=== PATIENT | male | born 1980 | race Caucasian/White ===

== ENCOUNTER 2020-01-29 13:42 | Outpatient (REF) | payer MEDICAID, SELFPAY | END 2020-01-29 13:43 | disposition home or self-care (01) | LOC: HO.LAB 13:42 | PROVIDERS: Visit Provider Internal Medicine | DX: Z20.828 Contact with and (suspected) exposure to other viral communicable diseases (principal) | CPT/HCPCS: C9803; U0003 ==

== ENCOUNTER → 2020-10-19 08:46 | Outpatient (BNVA) | payer OTHER, SELFPAY | PROVIDERS: PCP Internal Medicine; Visit Provider Physician Assistant | DX: S05.92XA Unspecified injury of left eye and orbit, initial encounter (principal); W22.8XXA Striking against or struck by other objects, initial encounter; H57.12 Ocular pain, left eye ==

== ENCOUNTER 2020-10-19 09:46 | Emergency (ER) | payer OTHER, SELFPAY ==
--- NOTE | ~2020-10-19 | CT_ITS ---
EXAMINATION: CT ORBIT WITHOUT CONTRAST CLINICAL INFORMATION: Left thigh pain after trauma. Rule out lobe rupture. COMPARISON: None TECHNIQUE: Axial images through the orbits without contrast. Sagittal and coronal reconstructions on the technologist workstation were performed. This CT examination was performed using dose optimization techniques as appropriate, variously including the following: *Automated exposure control *Adjustment of mA and/or kV according to patient size (this includes techniques or standardized protocols for targeted exams where dose is matched to indication/reason for exam; i.e. extremities or head) *Use of iterative reconstruction technique DLP: 238 mGy-cm FINDINGS: The left eyeball is normal-appearing. Pre- and postseptal soft tissues are normal. No fracture or dislocation is seen. Visualized paranasal sinuses, mastoid air cells and middle ears are clear. The temporomandibular joints are normal. Visualized intracranial structures are normal. CT/CT orbit BI wo con IMPRESSION: Unremarkable examination.
[2020-10-19 10:25] VITALS: BP 111/79; PULSE 58; RESP 16; TEMP 36.1; O2SAT 98; BMI 27.0
[2020-10-19] MEDS: Fluorescein Sodium STRIP 1 STRIP EYE-LEFT (10:49)
[2020-10-19] MEDS: Tetracaine HCl/PF 0.5% Oph Sol 4 ML DROPS 1 DROP EYE-LEFT (10:49)
--- NOTE | 2020-10-19 12:40 | ED.EYEPROB ---
HPI - Eye Problem General Chief complaint: Eye Problems Stated complaint: FB in eye Time Seen by Provider: 10/19/20 10:41 Source: patient Mode of arrival: ambulatory Limitations: no limitations History of Present Illness HPI Narrative: On Monday the patient was working and he was struck in the left eye with a piece of wood. Since then he has had eye pain, photophobia and blurry vision. He does not use any contacts or glasses. He denies any head injury loss of consciousness. Related Data Previous Rx's Medication Instructions Recorded prednisolone acetate (PF) 1 drp OPHTHALMIC (EYE) QID 5 Days 10/19/20 #50 ml Allergies Allergy/AdvReac Type Severity Reaction Status Date / Time No Known Allergies Allergy Verified 10/19/20 10:25 Review of Systems Review of Systems: Yes all other systems are reviewed and are negative Constitutional: Constitutional: Reports no additional constitutional complaints, Denies body ache(s), Denies chills, Denies fever(s), Denies headache(s) and Denies weakness Eyes: Eyes: Reports no additional eye complaints, Reports blurry vision, Reports change in vision, Reports eye pain and Reports photophobia ENT: Reports system reviewed and no additional complaints, except as documented, Denies dizziness, Denies headache(s), Denies nasal congestion, Denies nasal discharge and Denies neck pain Cardiovascular: Cardiovascular: Reports no additional cardiovascular complaints, Denies chest pain, Denies leg edema and Denies dyspnea Respiratory: Respiratory: Reports no additional respiratory complaints, Denies cough and Denies dyspnea Gastrointestinal: Gastrointestinal: Reports no additional gastrointestinal complaints, Denies abdominal pain, Denies diarrhea, Denies nausea and Denies vomiting Genitourinary: Genitourinary: Denies urinary incontinence Musculoskeletal: Musculoskeletal: Reports no additional musculoskeletal complaints, Denies back pain, Denies arthralgias, Denies joint swelling, Denies neck pain, Denies numbness and Denies tingling Integumentary/Breasts: Skin/Breast: Reports system reviewed and no additional complaints, except as docu and Denies rash Neurologic: Reports system reviewed and no additional complaints, except as documented, Denies Abnormal speech present, Denies dizziness, Denies headache(s), Denies numbness, Denies tingling and Denies weakness PMF Past Medical History Attestation statement: The following information was validated with the patient. Source: old records reviewed and nursing notes reviewed Medical History No known health problems Social History Social History Advance Directives: Yes Advance Directives Information Provided: Yes Advance Directives on File: No Physical Exam Vital Signs: Vital Signs: Last Vital Signs Temp 97 F 10/19/20 10:25 Pulse 58 10/19/20 10:25 Resp 16 10/19/20 10:25 BP 111/79 10/19/20 10:25 Pulse Ox 98 10/19/20 10:25 Body Mass Index 27.0 Const: General: cooperative, healthy appearing, comfortable and no acute distress Orientation/consciousness: patient oriented x3 Limitations: no limitations HENMT: Head: Yes normal to inspection Ears: hearing grossly normal bilaterally General nose exam: Normal external nose present Face and sinus: Yes normal facial exam Mouth: Normal oral and palatal mucosa present Throat: Yes posterior oropharynx normal Eyes: Other: IOP right eye 10, left eye 8 Visual acuity right eye 20/15, left eye 20/70-after tetracaine repeat visual acuity left eye 20/15 General: appearance normal, both eyes and all related structures Alignment and Position: alignment normal Periorbital: periorbital findings normal Eyelids: Yes eyelids normal Conjunctivae: conjunctival abnormal (Mild injection to the left eye) Sclerae: sclerae normal Corneas: corneas abnormal and fluorescein used (No foreign body or abrasion noted) Pupils: Equal, round and reactive pupils present EOM: EOMs intact bilaterally (Pain with EOM movement) Direct Ophthalmoscopy: no papilledema, fundi normal bilaterally, anterior chamber normal and photophobia Neck: Neck: Yes normal visual inspection Chest: Chest palpation & inspection: normal inspection of the chest Resp: Effort & Inspection: normal respiratory effort Auscultation: clear to auscultation bilaterally Cardio: Rate: regular rate Rhythm: regular rhythm Peripheral pulses: Peripheral pulses 2+ throughout GI: Inspection: Yes normal to inspection Palpation (GI): Soft to palpation and nontender Auscultation: normal bowel sounds Back/Spine/Pelvis: Thoracic/Lumbar Spine: thoracic and lumbar spine normal to inspection Skin: General skin exam: no rashes or lesions noted Neuro: General: patient oriented x3, no focal motor deficits and normal sensation to monofilament Cranial nerves: Yes Equal, round and reactive pupils present Cognition (Neuro): normal cognition Speech: No Abnormal speech present Gait exam (Neuro): Normal gait present Motor exam (neuro): 5/5 motor strength present throughout Extrem: General: Yes normal to inspection Course Course Course Narrative: 40-year-old male here with complaints of left eye pain, photophobia, blurry vision after a blunt injury 2 days ago at work. Decreased visual acuity initially however after tetracaine equal bilaterally. Fluorescein stain shows no foreign body or abrasion. IOP normal. Discussed with attending Dr. Wheeler. Recommended a CT of orbits to rule out globe rupture and periorbital injury. 1215-CT negative for globe rupture or peirorbital injury. Question acute iritis. Will discuss with Ophthalmology. 1330-spoke with Dr. Buenrostro from Ophthalmology. Reviewed the patient's case. If there is concern for iritis there should be contralateral pain with light. When I shine the light in the patient's right eye he is complaining of pain in his left eye. Recommended treatment with prednisolone drops 4 times daily and close follow-up with Ophthalmology. Reviewed worrisome signs and symptoms of when to return to the emergency department. Comfortable with discharge home. MDM - Eye Problem Medical Records Attestation: I reviewed the patient's medical records. Lab Data Attestation: I reviewed the patient's lab results. Imaging Data CT orbit: Attestation: I personally reviewed and interpreted this imaging study as follows: Radiologist's impression: FINDINGS: The left eyeball is normal-appearing. Pre- and postseptal soft tissues are normal. No fracture or dislocation is seen. Visualized paranasal sinuses, mastoid air cells and middle ears are clear. The temporomandibular joints are normal. Visualized intracranial structures are normal. CT/CT orbit BI wo con IMPRESSION: Unremarkable examination. Discharge Plan Discharge Clinical Impression: Acute iritis Patient Disposition: Home, Self-Care Instructions: Iritis (ED) Additional Instructions: I will call you today for any prescription changes Prescriptions: New prednisolone acetate (PF) 1 % drops,suspension 1 drp ophthalmic (eye) QID 5 Days Qty: 50 RF: 0 Referrals: Dada Buenrostro [Physician] - 2 days Stand Alone Forms: Work/School Release Interventions: ED Discharge Assessment Last Done: 10/19/20 12:51 Discharge Date/Time: 10/19/20 12:52
== END 2020-10-19 12:52 | disposition home or self-care (01) ==
PROVIDERS: Emergency Provider Emergency Medicine Emergency Medical Services; PCP Internal Medicine
DX: Z04.2 Encounter for examination and observation following work accident (principal); H20.00 Unspecified acute and subacute iridocyclitis; H57.12 Ocular pain, left eye
CPT/HCPCS: 70480; 99283; 99284

== ENCOUNTER 2021-01-04 07:29 | Outpatient (REF) | payer MEDICAID, SELFPAY ==
[2021-01-04 08:40] LABS: COVID-19 Test Negative (Negative)
== END 2021-01-04 07:30 | disposition home or self-care (01) ==
LOC: HO.LAB 07:29
PROVIDERS: Visit Provider Internal Medicine
DX: Z20.822 Contact with and (suspected) exposure to COVID-19 (principal)
CPT/HCPCS: 36415; 87635; C9803